=== PATIENT | female | born 1940 | race Hispanic/Latino ===

== ENCOUNTER 2018-05-03 07:28 | Emergency (ER) | payer MEDICARE ==
--- NOTE | 2018-05-03 08:54 | Cat Scan Report ---
CT HEAD WITHOUT CONTRAST: HISTORY: Altered mental status. TECHNIQUE: Sequential CT images without contrast. FINDINGS: Images obtained show bilateral prominence of the sulci and ventricles. There are no abnormal intra- or extra-axial blood or fluid collections. There are no focal masses or evidence of mass effect. The barillas white matter differentiation appears within normal limits. Regions of periventricular decreased attenuation are consistent with microangiopathic ischemic disease. The posterior fossa structures including the fourth ventricle, cerebellum, and brainstem appear normal. IMPRESSION: Evidence of atrophy and microangiopathic ischemic disease. No acute intracranial process noted.
--- NOTE | 2018-05-03 08:55 | XRay Report ---
AP CHEST: HISTORY: Hypertension AP view of the chest demonstrates a normal mediastinal and cardiac contour with clear lungs and normal bony and soft tissue structures. IMPRESSION: Unremarkable AP chest.
[2018-05-03 09:13] LABS: Basophils % (Auto) 0.8 % (0.0-1.8); Eosinophils # (Auto) 0.1 K/mm3 (0.0-0.4); Eosinophils % (Auto) 1.4 % (0.0-4.3); Hematocrit 33.7 % (30.3-42.9); Hemoglobin 11.5 gm/dl (10.1-14.3); Lymphocytes # (Auto) 1.5 K/mm3 (1.2-5.4); Lymphocytes % (Auto) 25.7 % (13.4-35.0); Mean Corpuscular HGB Conc 34 % (30-34); Mean Corpuscular Hemoglobin 30 pg (28-32); Mean Corpuscular Volume 90 fl (79-97); Monocytes # (Auto) 0.6 K/mm3 (0.0-0.8); Monocytes % (Auto) 10.5 % (0.0-7.3); Platelet Count 236 K/mm3 (140-440); Red Blood Count 3.76 M/mm3 (3.65-5.03); Red Cell Distribution Width 13.4 % (13.2-15.2)
[2018-05-03 09:40] LABS: Alanine Aminotransferase 11 units/L (7-56); BUN/Creatinine Ratio 13; Blood Urea Nitrogen 9 mg/dL (7-17); Calcium 9.2 mg/dL (8.4-10.2)
[2018-05-03 09:41] LABS: Albumin 3.7 g/dL (3.9-5)
[2018-05-03 09:54] LABS: Hemolysis Index 8
[2018-05-03 09:55] LABS: Amphetamine Screen,Urine PRESUMPTIVE NEGATIVE; Benzodiazepines Screen,Urine PRESUMPTIVE NEGATIVE; Bilirubin,Urine NEG (Negative); Blood,Urine NEG (Negative); Cannabinoid Screen,Urine PRESUMPTIVE NEGATIVE; Cocaine Screen,Urine PRESUMPTIVE NEGATIVE; Color,Urine Yellow (Yellow); Methadone Screen,Urine PRESUMPTIVE NEGATIVE; Mucus,Urine FEW /HPF; Opiate Screen,Urine PRESUMPTIVE NEGATIVE; Protein,Urine <15 mg/dL mg/dL (Negative); Urobilinogen,Urine < 2.0 mg/dL (<2.0)
--- NOTE | 2018-05-03 12:37 | Emergency Department Report ---
ED General Adult HPI - General Chief complaint: Psych Stated complaint: PARANOIA Time Seen by Provider: 05/03/18 08:22 Source: EMS Mode of arrival: Stretcher Limitations: Altered Mental Status - History of Present Illness Initial comments: 77-year-old female who I am told is [facility]. We were told that he patient was "confused and seemed to be trying to jump out a window ". Patient tells me that she wants to get back to [place] where she lives. She actually does not reside in [place]. She states that she has lost her hearing aids and is significantly hard of hearing. However her speech is confused and she is not amply oriented. She certainly does not have mental capacity. She is not actively hallucinating or delusional. Obviously she does have significant dementia. She has no other specific complaint. -: hour(s) - Related Data Allergies Allergy/AdvReac Type Severity Reaction Status Date / Time Unable to Assess Allergy Unverified 05/03/18 08:36 ED Review of Systems ROS: Stated complaint: PARANOIA Other details as noted in HPI Constitutional: denies: chills, fever Eyes: denies: eye pain, eye discharge, vision change ENT: denies: ear pain, throat pain Respiratory: denies: cough, shortness of breath, wheezing Cardiovascular: denies: chest pain, palpitations Endocrine: no symptoms reported Gastrointestinal: denies: abdominal pain, nausea, diarrhea Genitourinary: denies: urgency, dysuria, discharge Musculoskeletal: denies: back pain, joint swelling, arthralgia Skin: denies: rash, lesions Neurological: denies: headache, weakness, paresthesias Psychiatric: denies: anxiety, depression Hematological/Lymphatic: denies: easy bleeding, easy bruising ED Past Medical Hx - Past Medical History Previous Medical History?: Yes Hx Psychiatric Treatment: Yes Hx Dementia: Yes - Surgical History Additional Surgical History: Unknown - Social History Smoking Status: Unknown if ever smoked Substance Use Type: None ED Physical Exam - General Limitations: Other (consistent with dementia) General appearance: alert, in no apparent distress - Head Head exam: Present: atraumatic, normocephalic - Eye Eye exam: Present: normal appearance. Absent: scleral icterus - ENT ENT exam: Present: mucous membranes moist - Neck Neck exam: Present: normal inspection. Absent: tenderness, meningismus - Respiratory Respiratory exam: Present: normal lung sounds bilaterally. Absent: respiratory distress - Cardiovascular Cardiovascular Exam: Present: regular rate, normal rhythm. Absent: systolic murmur, diastolic murmur, rubs, gallop - GI/Abdominal GI/Abdominal exam: Present: soft, normal bowel sounds. Absent: distended, tenderness, guarding, rebound, rigid - Extremities Exam Extremities exam: Present: normal inspection - Back Exam Back exam: Present: normal inspection - Neurological Exam Neurological exam: Present: alert, oriented X3, CN II-XII intact, normal gait. Absent: motor sensory deficit - Psychiatric Psychiatric exam: Present: normal affect, normal mood - Skin Skin exam: Present: warm, dry, intact, normal color. Absent: rash ED Course Vital Signs 05/03/18 05/03/18 07:43 12:04 Temperature 98.5 F 98.8 F Pulse Rate 68 85 Respiratory 20 18 Rate Blood Pressure 138/76 Blood Pressure 131/100 [Right] O2 Sat by Pulse 98 99 Oximetry - Reevaluation(s) Reevaluation #1: Patient was seen by a mental health counselor. She will be placed on a 1013. She does not have adequate mental capacity. She is wandering if not attempting to climb out of a window. She needs a Alzheimer's unit unit and further mental health evaluation. 05/03/18 12:40 ED Medical Decision Making - Lab Data Result diagrams: 05/03/18 08:48 05/03/18 08:48 Laboratory Results - last 24 hr 05/03/18 05/03/18 05/03/18 08:48 08:48 08:48 WBC 5.9 RBC 3.76 Hgb 11.5 Hct 33.7 MCV 90 MCH 30 MCHC 34 RDW 13.4 Plt Count 236 Lymph % (Auto) 25.7 [place] % (Auto) 10.5 H Eos % (Auto) 1.4 Baso % (Auto) 0.8 Lymph # 1.5 [place] # 0.6 Eos # 0.1 Baso # 0.0 Seg Neutrophils % 61.6 Seg Neutrophils # 3.6 Sodium 143 Potassium 4.2 Chloride 106.9 Carbon Dioxide 26 Anion Gap 14 BUN 9 Creatinine 0.7 Estimated GFR > 60 BUN/Creatinine Ratio 13 Glucose 98 Lactic Acid Calcium 9.2 Total Bilirubin 0.30 AST 14 ALT 11 Alkaline Phosphatase 69 Ammonia Total Protein 5.7 L Albumin 3.7 L Albumin/Globulin Ratio 1.9 TSH 2.570 Urine Color Urine Turbidity Urine pH Ur Specific [place] Urine Protein Urine Glucose (UA) Urine Ketones Urine Blood Urine Nitrite Urine Bilirubin Urine Urobilinogen Ur Leukocyte Esterase Urine WBC (Auto) Urine RBC (Auto) U Epithel Cells (Auto) Urine Mucus Urine Opiates Screen Urine Methadone Screen Ur Barbiturates Screen Ur Phencyclidine Scrn Ur Amphetamines Screen U Benzodiazepines Scrn Urine Cocaine Screen U Marijuana (THC) Screen Drugs of Abuse Note Plasma/Serum Alcohol 05/03/18 05/03/18 05/03/18 08:48 08:48 08:48 WBC RBC Hgb Hct MCV MCH MCHC RDW Plt Count Lymph % (Auto) [place] % (Auto) Eos % (Auto) Baso % (Auto) Lymph # [place] # Eos # Baso # Seg Neutrophils % Seg Neutrophils # Sodium Potassium Chloride Carbon Dioxide Anion Gap BUN Creatinine Estimated GFR BUN/Creatinine Ratio Glucose Lactic Acid 1.10 Calcium Total Bilirubin AST ALT Alkaline Phosphatase Ammonia 16.0 L Total Protein Albumin Albumin/Globulin Ratio TSH Urine Color Urine Turbidity Urine pH Ur Specific [place] Urine Protein Urine Glucose (UA) Urine Ketones Urine Blood Urine Nitrite Urine Bilirubin Urine Urobilinogen Ur Leukocyte Esterase Urine WBC (Auto) Urine RBC (Auto) U Epithel Cells (Auto) Urine Mucus Urine Opiates Screen Urine Methadone Screen Ur Barbiturates Screen Ur Phencyclidine Scrn Ur Amphetamines Screen U Benzodiazepines Scrn Urine Cocaine Screen U Marijuana (THC) Screen Drugs of Abuse Note Plasma/Serum Alcohol < 0.01 05/03/18 05/03/18 09:17 09:17 WBC RBC Hgb Hct MCV MCH MCHC RDW Plt Count Lymph % (Auto) [place] % (Auto) Eos % (Auto) Baso % (Auto) Lymph # [place] # Eos # Baso # Seg Neutrophils % Seg Neutrophils # Sodium Potassium Chloride Carbon Dioxide Anion Gap BUN Creatinine Estimated GFR BUN/Creatinine Ratio Glucose Lactic Acid Calcium Total Bilirubin AST ALT Alkaline Phosphatase Ammonia Total Protein Albumin Albumin/Globulin Ratio TSH Urine Color Yellow Urine Turbidity Clear Urine pH 6.0 Ur Specific [place] 1.014 Urine Protein <15 mg/dl Urine Glucose (UA) Neg Urine Ketones Neg Urine Blood Neg Urine Nitrite Neg Urine Bilirubin Neg Urine Urobilinogen < 2.0 Ur Leukocyte Esterase Sm Urine WBC (Auto) 4.0 Urine RBC (Auto) 2.0 U Epithel Cells (Auto) 1.0 Urine Mucus Few Urine Opiates Screen Presumptive negative Urine Methadone Screen Presumptive negative Ur Barbiturates Screen Presumptive negative Ur Phencyclidine Scrn Presumptive negative Ur Amphetamines Screen Presumptive negative U Benzodiazepines Scrn Presumptive negative Urine Cocaine Screen Presumptive negative U Marijuana (THC) Screen Presumptive negative Drugs of Abuse Note Disclamer Plasma/Serum Alcohol Critical care attestation.: If time is entered above; I have spent that time in minutes in the direct care of this critically ill patient, excluding procedure time. ED Disposition Clinical Impression: Dementia with psychosis Disposition: [id number]/TX-[id number] PSY HOSP/PSY UNIT Is pt being admited?: No Does the pt Need Aspirin: No Condition: Stable Referrals: PRIMARY CARE [Primary Care Provider] - 3-5 Days Time of Disposition: 12:42
[2018-05-04] MEDS ORDERED: GEODON IM ONE (01:59)
[2018-05-04] MEDS ORDERED: GEODON IM PRN ×2 (02:10→02:11)
[2018-05-04] MEDS ORDERED: KETAMINE HCL IV ONE (03:13)
[2018-05-04] MEDS ORDERED: KETALAR IM ONE ×2 (03:21→04:00)
[2018-05-04 10:34] VITALS: BP 151/61
--- NOTE | 2018-05-04 11:59 | Consultation ---
History of Present Illness - Reason for Consult Reason for consult: confusion - History of Present Psychiatric Illness This is a 77-year-old female who presents secondary to acute disorganization and reports the patient was attempting to jump out of her [facility]it[facility] window. Per review the medical record, patient appeared fairly confused on examination and appeared to be having cognitive difficulties. On my examination, patient was fairly disorganized and unable to clearly to a coherent story about how she got to the hospital. At the current time patient appeared to be visually impaired as the patient could not see myself or read my ID badge. Furthermore, patient had limited ability to comprehend my speech secondary to not having her hearing aids. Consequently, assessment was very limited. Historical information about the patient's presentation needs to be obtained through collateral information and know past psychiatric history was obtained on this clinical examination. Consequently, no information is available on which sexual medications patient is currently taking. On mental status examination: This is a 77-year-old female recumbent on bed wearing hospital gown and eyeglasses. Noticeable hearing aids noted. Patient appears appropriately groomed dress not cachectic. He appears to have good eye contact but sensorium mildly distracted. Otherwise patient is withdrawn and apprehensive and constricted in her affect. Speech is mostly clear coherent but slow and soft. Thought process not organized somewhat preoccupied and perseverative. Thought content was overvalued ideas as well as some impoverishment. No reports of auditory and visual hallucinations per the patient my examination. No reports of suicidal homicidal thoughts; however, patient again was a very poor historian and appeared confused. Patient was oriented to person but not place time situation and date. Consultation attention impaired memory impaired. Insight judgment poor. ADLs appear to require some assistance from care providers. Admitting diagnosis: Dementia No evidence for delirium noted as metabolic panel and CBC normal. Plan: Refer for inpatient psychiatric hospitalization Maintain on 1013 until she can be transferred to the hospital. Obtain collateral information from penitentiary regarding her medications and the exact nature of the recent hospitalization. Medications and Allergies Allergies Allergy/AdvReac Type Severity Reaction Status Date / Time Unable to Assess Allergy Unverified 05/03/18 08:36 Home Medications Medication Instructions Recorded Confirmed Last Taken Type OLANZapine 5 mg PO HS 05/03/18 05/03/18 Unknown History Active Meds: Active Medications Olanzapine (Zyprexa) 5 mg PO QHS THA Stop: 05/08/18 21:59 Last Admin: 05/03/18 22:23 Dose: 5 mg Ziprasidone (Geodon) 10 mg IM Q12H PRN PRN Reason: Agitation Last Admin: 05/04/18 02:12 Dose: 10 mg Mental Status Exam - Vital signs Last Vital Signs Temp 98.5 F 05/04/18 10:34 Pulse 89 05/04/18 10:13 Resp 18 05/04/18 10:34 BP 151/61 05/04/18 10:13 Pulse Ox 98 05/04/18 10:13 Results Result Diagrams: 05/03/18 08:48 05/03/18 08:48 All other labs normal.
== END 2018-05-04 16:39 ==
LOC: ED 07:28 → EEVIPCON 07:28 → ED 05-04 16:39
DX: F23 Brief psychotic disorder (principal); F03.90 Unspecified dementia, unspecified severity, without behavioral disturbance, psychotic disturbance, mood disturbance, and anxiety
CPT/HCPCS: 36415; 70450; 71045; 80053; 80307; 81001; 82140; 84443; 85025; 96372; 99285; G0480; J3486; 80320